=== PATIENT | female | born 1955 | race Caucasian/White ===

== ENCOUNTER 2021-03-28 18:34 | Emergency (ER) | payer MEDICARE ==
[~2021-03-28] VITALS: Ht 167.6 cm; Wt 62.1 kg
[2021-03-28] MEDS ORDERED: POTASSIUM CHLORIDE 20 MEQ TAB CR PO STA (19:40)
[2021-03-28] MEDS ORDERED: POTASSIUM CHLORIDE 20MEQ/100ML 200 ML IV ONE (19:45)
[2021-03-28] MEDS ORDERED: LACTATED RINGER'S 500 ML IV ONE (19:45)
[2021-03-28 20:16] LABS: ANION GAP 18.3 mmol/L (8-16); CALCIUM 8.4 mg/dL (8.4-10.2); CREATININE, SERUM 1.34 mg/dL (0.57-1.11)
[2021-03-28 20:17] LABS: POTASSIUM 2.3 mmol/L (3.5-5.1)
== END 2021-03-29 00:31 | disposition home or self-care (01) ==
LOC: ER 21:06
DX: E87.6 Hypokalemia (principal); J44.9 Chronic obstructive pulmonary disease, unspecified; K21.9 Gastro-esophageal reflux disease without esophagitis; F32.9 Major depressive disorder, single episode, unspecified
CPT/HCPCS: 36415; 80048; 93005; 99284; J3480; J7121